=== PATIENT | female | born 1945 ===

== ENCOUNTER 2017-01-16 06:15 | Inpatient (IN) | payer MEDICARE ==
[2017-01-10 10:23] VITALS: BMI 30.7
[2017-01-16] MEDS ORDERED: Propofol 10 mg/ml Inj (20 ML) ONE (07:41)
[2017-01-16] MEDS ORDERED: Midazolam 2 MG/2 ML VIAL ONE (07:41)
[2017-01-16] MEDS ORDERED: Phenylephrine 10 mg/ml Inj ONE (07:43)
[2017-01-16] MEDS ORDERED: Rocuronium 10 mg/ml (5 ml) ONE (07:43)
[2017-01-16] MEDS: Bupivacaine 0.5% Inj(30mL) ONE ×2 (07:58→08:30)
[2017-01-16] MEDS ORDERED: Lactated Ringer's 1,000 ML IV ONE ×4 (07:59→15:55)
[2017-01-16] MEDS: ceFAZolin IV 2 gm in Dextrose 1 GM/50 ML BAG IVPB ONE ×3 (07:59→09:14)
[2017-01-16] MEDS ORDERED: Neostigmine Methylsulfate 3mg/3ml Syringe IV ONE (09:49)
[2017-01-16] MEDS ORDERED: Morphine 4 MG/ML VIAL ONE ×2 (11:17→11:25)
[2017-01-16] MEDS ORDERED: Oxycodone/Acetaminophen 5/325 mg Tab PO PRN (11:40)
[2017-01-16] MEDS ORDERED: HYDROmorphone 0.5 mg/0.5 ml ISec IVP PRN ×3 (11:43→15:15)
[2017-01-16] MEDS ORDERED: Lactated Ringer's 1,000 ML IV SCH (11:45)
--- NOTE | 2017-01-16 12:30 | OP ---
PROCEDURE DATE: 01/16/2017 PREOPERATIVE DIAGNOSIS: Uterine prolapse, prominent cystocele. POSTOPERATIVE DIAGNOSIS: Uterine prolapse, prominent cystocele. OPERATION PERFORMED: Supracervical hysterectomy, bilateral oophorectomy and salpingectomy and a sacr al colpopexy. ESTIMATED BLOOD LOSS: 50 mL. The patient received approximately 1400 mL of D5LR intraoperatively. Urine output was approximately 700 mL of clear urine at the end of the procedure. Dr. Goodrich was the health care assistant. He was instrumental in the care of the patient. He helped create exp osure, obtain hemostasis, and extraction of the specimen and closure of the patient. The procedure w ould not have been possible without his assistance in the hysterectomy. COMMENTS: Dr. Goodrich performed the sacral colpopexy with the health care assistant, my role as the health care assistant in the sacral colpopexy was to create exposure, provide retraction, suction irrigation and assist in cl osure of the patient. PROCEDURE: After informed consent was obtained, the patient was taken to the operating room where e was given general anesthesia. Timeout was performed. The patient was placed in dorsal lithotomy p osition in the [facility]. The patient was prepped and draped in the usual sterile fashion. A weighted speculum was inserted in the vagina. The cervix was visualized, grasped with a single-toot h tenaculum. The cervix was gently dilated. A HUMI uterine manipulator was inserted in the uterine cavity as a means to manipulate the uterus. Attention was then turned to the urethra where a De [place] c atheter was inserted into the bladder to monitor the patient's urinary output. Attention was then tu rned to the abdomen where an incision was made approximately 2 cm above the umbilicus. A Veress need le was inserted and the abdomen was insufflated to 15 mmHg. The robotic port was then introduced in the abdominal cavity and placement was confirmed with the laparoscope. Attention was then turned to approximately 20 cm right and lateral to the umbilicus. An 8 mm incision was made and a robotic port was introduced under direct visualization. A similar procedure was performed approximately 10 cm ri ght and lateral to the umbilicus. An additional 8 mm port was inserted into the abdominal cavity. A pproximately 20 cm left and lateral to the umbilicus, an 8 mm port was inserted under direct visualiz ation. An health care assistant port was inserted approximately 10 cm left and lateral to the umbilicus. The pa tient was then placed in steep Trendelenburg. The table was lowered and the robot was brought along the patient's side and docked without complication. Instruments used for the hysterectomy were a PK dissector, a scissor, doc suture cut and a ProGrasp. Attention was then turned to the right round l igament. It was grasped and serially coagulated and transected. The peritoneum was then undermined with the PK dissector and cut with the scissor. This was carried down anteriorly down to the level o f the VCare cup anteriorly. The cup was identified anteriorly. The infundibulopelvic ligament was t hen skeletonized. The ____ was identified below. The IP ligament was then serially coagulated and t ransected with the scissor. Hemostasis was noted. The broad ligament was then transected medially. The uterine vessels were identified laterally and serially coagulated at the level of the VCare cup. The posterior aspect of the peritoneum was then undermined with the PK dissector and transected ranjeet ng the uterosacral ligaments. The VCare cup was then identified anterolaterally and posteriorly. At tention was then turned to the right. The round ligament was serially coagulated and transected with the scissor. The bladder reflection was then undermined with the PK dissector and the peritoneum wa s undermined and cut with the scissor. Attention was then turned to the infundibulopelvic ligament w hich, in similar fashion, was identified. The ureter was identified below. The IP was serially coag ulated and transected with the scissor. The broad ligament was then transected. The uterine artery was identified, skeletonized and serially coagulated. The posterior aspect of the peritoneum was und ermined. The VCare cup was then identified circumferentially. The uterus was then amputated from th e cervix using hot marivel. Hemostasis was noted. The specimen ____ the uterus, tubes and ovaries we re placed in an Endobag and extracted through the umbilicus. This concluded my portion of the hysterectomy and Dr. Goodrich will dictate his portion of the case. During the sacral colpopexy, I was the health care assistant. I helped create exposure, retract, obtain hemostas is throughout the course of the procedure and we both closed the patient. The umbilical incision was closed with 0 Vicryl in a running fashion. The 8 mm ports were closed with laura. All sponge, la p, needle, and instrument counts were correct x 2. The patient was taken to the recovery room in olivier ke and stable condition. Jhonathan Rodas MD cc: [id number] TT: 01/16/2017 12:28:27 sn
[2017-01-16] MEDS ORDERED: HYDROmorphone 0.5 mg/0.5 ml ISec IVP ONE (15:05)
[2017-01-16] MEDS ORDERED: HYDROmorphone 0.5 mg/0.5 ml ISec ONE (15:07)
[2017-01-16] MEDS: ceFAZolin IV 1 gm in Dextrose 1 GM/50 ML BAG IVPB SCH ×2 (17:15→21:47)
[2017-01-16] MEDS: Aritificial Tears (15ml) OU PRN (23:36)
[2017-01-17] MEDS: ceFAZolin IV 1 gm in Dextrose 1 GM/50 ML BAG IVPB SCH (05:35)
[2017-01-17] MEDS: Aritificial Tears (15ml) OU PRN (05:36)
--- NOTE | 2017-01-17 07:30 | CP.SDSHP ---
Same Day Surgery H & P - Allergies Allergies: Allergies No Known Allergies Allergy (Verified 01/10/17 10:24) - Physical Exam Vital Signs: Vital Signs 01/17/17 00:00 Temperature 97.0 F L Pulse Rate 85 Respiratory 20 Rate Blood Pressure 135/79 O2 Sat by Pulse 98 Oximetry Short Stay Discharge - Short Stay Discharge Admitting Diagnosis/Reason for Visit: BLADDER PROLAPSE, URINARY INCONTINENCE Medications: oxyCODONE/Acetaminophen [Percocet 5/325 mg Tab] 1 tab PO Q4 PRN #30 tab PRN Reason: Pain, Severe (8-10) Follow-up: f/u with Bj in one week nothing per vagina no heavy lifting d/c conley if voids pt may go home percocet motrin ad colace Progress Note/Discharge Note with Instructions: doing well no nausea vomiting pain well controlled vss afebrile abd soft nt nd no rebound or guarding ext no homas pod 1 d/c home npv f/u with jil in one week pain meds as prescribed
[2017-01-17 07:59] LABS: HEMATOCRIT 34.8 % (34.0-47.0); MEAN CELL VOLUME 89.9 fL (81.0-99.0); MEAN CORPUSCULAR HEMOGLOBIN 29.2 pg (27.0-31.0); MEAN CORPUSCULAR HGB CONC 32.5 g/dL (33.0-37.0); MEAN PLATELET VOLUME 8.8 fL (7.2-11.7)
[2017-01-17 08:27] LABS: WHITE BLOOD COUNT 13.7 K/uL (4.8-10.8)
[2017-01-17 09:05] VITALS: BP 117/65; PULSE 77; RESP 18; TEMP 97.3; O2SAT 100
--- NOTE | 2017-01-18 17:06 | OP ---
PROCEDURE DATE: 01/16/2017 SURGEON: Kp Wild MD COMPUTER SECURITY COORDINATOR: Jhonathan Rodas MD PREOPERATIVE DIAGNOSIS: Vaginal pelvic organ prolapse including uterine prolapse. PROCEDURE PERFORMED: Hysterectomy, oophorectomy, salpingectomy and then robotic sacrocolpopexy. Dr. Rodas will be dictating his part of the case separately. My part that will be dictated here is sacrocolpopexy, robotic. COMPLICATIONS: None. ANESTHESIA: General. DESCRIPTION OF THE OPERATION: So after the hysterectomy part was done, then I sat down in the robot console. I freed the posterior vagina, anterior vagina and the sacrum. Tunneling was done and once the freeing it up was done, avascular plane was created. It was taken furthest as possible that will help reduce the rectocele and cystocele and then Y-mesh was placed anteriorly and posteriorly. It w as secured with Ethibond and Vicryl, and then the single arm of the Y was brought under the tunnel of the peritoneum and secured to the sacrum. Excess mesh was excised and then peritoneum was brought o vladislav and completely re-retroperitonealized the mesh, and then all the specimen was placed in the bag a nd was removed, and the fascia was closed using a 0 Vicryl in interrupted fashion. The patient ricki ated the procedure well. There was no complication to the case. Kp Wild MD cc: [id number] TT: 01/18/2017 17:05:35 aida
== END 2017-01-17 14:45 | disposition home or self-care (01) | DRG 743 ==
LOC: C.SDS 06:15 → C.9S 12:01 → C.4M 17:44
PROVIDERS: ADMIT Obstetrics & Gynecology Gynecology; ATTEND Urology
PROC: 0UT74ZZ Resection of Bilateral Fallopian Tubes, Percutaneous Endoscopic Approach (ICD-10-PCS; 2017-01-16)
PROC: 0USG4ZZ Reposition Vagina, Percutaneous Endoscopic Approach (ICD-10-PCS; 2017-01-16)
PROC: 8E0W4CZ Robotic Assisted Procedure of Trunk Region, Percutaneous Endoscopic Approach (ICD-10-PCS; 2017-01-16)
PROC: 0UT94ZZ Resection of Uterus, Percutaneous Endoscopic Approach (ICD-10-PCS; principal; 2017-01-16 07:45)
PROC: 0UT24ZZ Resection of Bilateral Ovaries, Percutaneous Endoscopic Approach (ICD-10-PCS; 2017-01-16 07:45)
DX: N81.4 Uterovaginal prolapse, unspecified (principal); N80.0 Endometriosis of uterus; N83.292 Other ovarian cyst, left side; N83.291 Other ovarian cyst, right side; R32 Unspecified urinary incontinence